=== PATIENT | male | born 1980 | race Caucasian/White ===

== ENCOUNTER 2019-05-12 05:13 | Emergency (ER) | payer OTHER ==
[~2019-05-12] VITALS: Ht 182.9 cm; Wt 90.7 kg
--- NOTE | 2019-05-12 05:20 | NUR ---
PT BIBRA FROM HOME. PER RA, ROOMMATE CALLED 911 BECAUSE "PATIENT HAD TOO MUCH TO DRINK". PT OPENS EYES TO VOICE, APPEARS INTOXICATED. PT ABLE TO AMBULATE TO BED FROM [facility]. VITAL SIGNS STABLE. RESPIRATIONS EVEN AND UNLABORED. VITAL SIGNS STABLE. NO ACUTE DISTRESS NOTED AT THIS TIME. PLACED ON MONITOR, WILL CONTINUE TO MONITOR
--- NOTE | 2019-05-12 06:30 | NUR ---
PT AWAKE, YELLING INCOHERENTLY AND HYPERVENTILATING. PT CONSTANTLY ATTEMPTING TO GET OUT OF BED AND LAY ON FLOOR. MD AWARE. SITTER AT BEDSIDE
[2019-05-12] MEDS ORDERED: ONDANSETRON 4 MG TAB.RAPDIS ONE (06:50)
[2019-05-12] MEDS ORDERED: ONDANSETRON 4 MG TAB.RAPDIS SL ONE (07:00)
[2019-05-12] MEDS ORDERED: OLANZAPINE 10 MG VIAL IM ONE (07:00)
--- NOTE | 2019-05-12 10:11 | NUR ---
PT IS AWAKE. REQUESTING FOR WATER AND KLONOPIN 1MG. DR LIAO AWARE.
[2019-05-12] MEDS ORDERED: LORAZEPAM 1 MG TABLET ONE (10:13)
--- NOTE | 2019-05-12 10:13 | NUR ---
Witnessed wasted 0.5mg of ativan PO with Susan DEAN.
--- NOTE | 2019-05-12 10:13 | NUR ---
WASTED 0.5 MG TAB WITH URIEL OLIVO RN. Addendum: 05/15/19 at 1629 by JADA WASTED 0.5MG TAB ATIVAN WITH GRACE OLIVO RN.
[2019-05-12] MEDS ORDERED: LORAZEPAM 0.5 MG TABLET PO ONE (10:30)
[2019-05-12] MEDS ORDERED: MAG HYDROX/AL HYDROX/SIMETH 30 ML UDC ONE (14:43)
[2019-05-12] MEDS ORDERED: LIDOCAINE VISCOUS 2% UD 15 ML UDC ONE (14:43)
--- NOTE | 2019-05-12 14:46 | NUR ---
PATIENT CALLED HIS FRIEND. WILL PICK HIM UP. ETA APPROX 30 MIN
--- NOTE | 2019-05-12 14:51 | NUR ---
Patient discharged in stable condition. Assisted to waiting room while waiting for friend to pick him up. Written and verbal after care instructions given. Patient verbalizes understanding of instruction.
[2019-05-12 14:52] VITALS: BP 141/85
[2019-05-12] MEDS ORDERED: MAG HYDROX/AL HYDROX/SIMETH 30 ML UDC PO ONE (15:00)
[2019-05-12] MEDS ORDERED: LIDOCAINE VISCOUS 2% UD 15 ML UDC MM ONE (15:00)
--- NOTE | 2019-05-15 10:13 | NUR ---
Ely kelly in [facility] - 05/15/19 at 1631 by ENMANUEL Witnessed wasted 0.5mg of ativan PO with Susan SMALLS
== END 2019-05-12 14:54 | disposition home or self-care (01) ==
LOC: ER 05:14
DX: F10.129 Alcohol abuse with intoxication, unspecified (principal); Y90.9 Presence of alcohol in blood, level not specified
CPT/HCPCS: 96372; 99284; J3490; Q0162

== ENCOUNTER 2019-08-13 17:20 | Emergency (ER) | payer OTHER ==
[~2019-08-13] VITALS: Ht 182.9 cm; Wt 90.7 kg
--- NOTE | 2019-08-13 17:24 | NUR ---
PT BIBRA AND [employer] FROM HOME C/O ETOH, DENIES HI/SI, PT IS AAOX2, NOT IN RESPIRATORY DISTRESS, HOOKED TO MONITOR, KEPT RESTED AND COMFORTABLE, WILL CONTINUE TO MONITOR.
--- NOTE | 2019-08-13 18:25 | NUR ---
SEEN AND EXAMINED BY .
--- NOTE | 2019-08-13 18:40 | NUR ---
IV LINE ESTABLISHED, BLOOD DRAWN AND SENT TO LAB.
[2019-08-13] MEDS: LORAZEPAM 1 MG TABLET PO ONE ×2 (18:42→18:51)
[2019-08-13] MEDS ORDERED: LORAZEPAM 1 MG TABLET ONE (18:44)
[2019-08-13 18:48] LABS: BASOPHILS % (AUTO) 0.6 % (0.0-2.0); EOSINOPHILS % (AUTO) 4.5 % (0.0-6.0); HEMATOCRIT 47 % (39-51); HEMOGLOBIN 15.8 g/dL (13.5-17.5); LYMPHOCYTES # (AUTO) 2.9 /CMM (0.8-4.8); LYMPHOCYTES % (AUTO) 48.2 % (20.0-44.0); MEAN CORPUSCULAR HGB CONC 33 g/dl (31.0-36.0); MEAN CORPUSCULAR VOLUME 90 fL (80-96); MONOCYTES # (AUTO) 0.4 /CMM (0.1-1.30); MONOCYTES % (AUTO) 6.3 % (2.0-12.0); NEUTROPHILS # (AUTO) 2.4 /CMM (1.8-8.9); NEUTROPHILS % (AUTO) 40.4 % (43.0-81.0); PLATELET COUNT (AUTO) 287 /CMM (150-450); RED BLOOD CELL COUNT(AUTO) 5.26 MIL/uL (4.5-6.0); WHITE BLOOD COUNT (AUTO) 5.9 K/uL (4.3-11.0)
--- NOTE | 2019-08-13 18:51 | NUR ---
URINE SPECIMEN COLLECTED AND SENT TO LAB.
[2019-08-13 19:07] LABS: ACETAMINOPHEN < 2 ug/ml (10-30); ALANINE AMINOTRANSFERASE 38 U/L (12-78); ALBUMIN 4.2 g/dL (3.4-5.0); ALCOHOL, BLOOD 326 mg/dL (0-0); ALKALINE PHOSPHATASE 65 U/L (46-116); ASPARTATE AMINOTRANSFERASE 21 U/L (15-37); BILIRUBIN,DIRECT 0.1 mg/dL (0.0-0.2); BILIRUBIN,TOTAL 0.3 mg/dL (0.2-1.0); CALCIUM, SERUM 8.3 mg/dL (8.5-10.1); CARBON DIOXIDE 29 mmol/L (21-32); CHLORIDE 100 mmol/L (98-107); CREATININE 1.2 mg/dL (0.6-1.3); GLUCOSE 102 mg/dL (74-106); POTASSIUM 3.7 mmol/L (3.5-5.1); SODIUM SERUM 140 mmol/L (136-145); TOTAL PROTEIN, SERUM 7.8 g/dL (6.4-8.2); UREA NITROGEN, BLOOD 14 mg/dL (7-18)
--- NOTE | 2019-08-13 19:07 | NUR ---
REPORT GIVEN TO DIANNE PEREZ FOR SURAJ.
[2019-08-13 19:24] LABS: APPEARANCE,URINE Clear (CLEAR); BILIRUBIN,URINE Negative (NEGATIVE); BLOOD, URINE Negative Ery/uL (NEGATIVE); COLOR,URINE Yellow (YELLOW); KETONES,URINE Negative (NEGATIVE); LEUKOCYTE ESTERASE ,URINE Negative (NEGATIVE); NITRITE, URINE Negative (NEGATIVE); PROTEIN,URINE Negative (NEGATIVE); UGLUCOSE Negative (NEGATIVE); UROBILINOGEN,URINE 0.2 EU/dL (0.2)
--- NOTE | 2019-08-13 19:51 | NUR ---
Pt pulled out iv. Pressure and 4x4 applied to site.
--- NOTE | 2019-08-13 20:23 | NUR ---
IRENE HARRIS (SISTER) CONTACT INFORMATION: [phone]
[2019-08-13] MEDS ORDERED: clonazePAM 1 MG TABLET PO ONE (21:30)
--- NOTE | 2019-08-13 22:02 | NUR ---
PT AWAKE, AAOX4. CALM AND COOPERATIVE. AMBULATORY WITH STEADY GAIT. VITAL SIGNS STABLE. SITTER STILL AT BEDSIDE, WILL CONTINUE TO MONITOR
--- NOTE | 2019-08-13 22:39 | NUR ---
LANDON (SISTER AND POWER OF DICE MANAGER) STATES PT HAS HAD MULTIPLE SUICIDE ATTEMPTS IN THE PAST. CONTACT INFORMATION
--- NOTE | 2019-08-13 22:42 | NUR ---
Patient is resting comfortably in bed. Easily aroused. VSS.
--- NOTE | 2019-08-14 00:07 | NUR ---
DR. GERARDO ON THE PHONE WITH [facility]
--- NOTE | 2019-08-14 00:10 | NUR ---
PER MACHO REED, ALCOHOL LEVEL <150 FOR BRANCH CRISIS TEAM EVAL
[2019-08-14] MEDS ORDERED: LORAZEPAM 1 MG TABLET ONE (00:11)
--- NOTE | 2019-08-14 00:14 | NUR ---
DIGITAL PRODUCTION OPERATOR AT BEDSIDE FOR REDRAW
[2019-08-14] MEDS ORDERED: LORAZEPAM 1 MG TABLET PO ONE (00:30)
--- NOTE | 2019-08-14 02:16 | NUR ---
PT RESTING COMFORTABLY IN BED. VITAL SIGNS STABLE. SITTER STILL AT BEDSIDE. WILL CONTINUE TO MONITOR
--- NOTE | 2019-08-14 04:34 | NUR ---
GLASS FRAME FITTER AT BEDSIDE FOR REDRAW
--- NOTE | 2019-08-14 05:10 | NUR ---
FAXED LAB RESULTS TO [facility]
--- NOTE | 2019-08-14 07:15 | NUR ---
COVID TEST SENT TO LAB
[2019-08-14] MEDS ORDERED: MAG HYDROX/AL HYDROX/SIMETH 30 ML UDC ONE (07:29)
[2019-08-14] MEDS ORDERED: MAG HYDROX/AL HYDROX/SIMETH 30 ML UDC PO ONE (07:30)
--- NOTE | 2019-08-14 07:45 | NUR ---
RECEIVED REPORT FROM DIANNE PEREZ FOR SURAJ, PT IS AAOX4, NOT IN RESPIRATORY DISTRESS, V/S STABLE, KEPT RESTED AND COMFORTABLE, WILL CONTINUE TO MONITOR.
--- NOTE | 2019-08-14 08:27 | NUR ---
SPOKE TO SIOBHAN [place]A [place] [facility]: TRANSFER INFORMATION: GOING TO [facility] [address] [place]VO NUMBER FOR REPORT: [phone] ETA IN AN HOUR
--- NOTE | 2019-08-14 08:53 | NUR ---
REPORT GIVEN TO DELROY DEAN OF [facility]
[2019-08-14] MEDS ORDERED: clonazePAM 1 MG TABLET ONE (09:21)
[2019-08-14 09:25] VITALS: BP 132/72
--- NOTE | 2019-08-14 09:26 | NUR ---
Patient picked up by [facility] stable condition. Patient will be transferred to [facility]. Clinicals and face sheet provided to EMT to be given at the hosp.
[2019-08-14] MEDS ORDERED: clonazePAM 1 MG TABLET PO ONE (09:30)
--- NOTE | 2019-08-15 05:34 | NUR ---
COVID RESULT FAXED TO [facility]
== END 2019-08-14 09:55 ==
LOC: ER 17:21
DX: F10.129 Alcohol abuse with intoxication, unspecified (principal); Y90.8 Blood alcohol level of 240 mg/100 ml or more; R46.89 Other symptoms and signs involving appearance and behavior
CPT/HCPCS: 36415 ×2; 80048; 80076; 80305; 80307 ×3; 80329; 81001; 82550; 85025; 87635; 99285; G0480; 81000-TC